=== PATIENT | male | born 1950 | race Caucasian/White ===

== ENCOUNTER → 2019-04-10 10:17 | Outpatient (BNVA) | payer MEDICARE, SELFPAY | PROVIDERS: Visit Provider Nurse Practitioner Family | DX: E78.5 Hyperlipidemia, unspecified (principal); I25.10 Atherosclerotic heart disease of native coronary artery without angina pectoris | CPT/HCPCS: 80053; 80061; 85025 ==

== ENCOUNTER → 2020-01-06 11:59 | Outpatient (BNVA) | payer MEDICARE, SELFPAY | PROVIDERS: Visit Provider Family Medicine | DX: K92.1 Melena (principal) | CPT/HCPCS: G0328 ==

== ENCOUNTER → 2020-02-13 08:54 | Outpatient (BNVA) | payer MEDICARE, SELFPAY | PROVIDERS: Visit Provider Surgery | DX: Z11.59 Encounter for screening for other viral diseases (principal); K92.1 Melena; R10.9 Unspecified abdominal pain | CPT/HCPCS: 87635 ==

== ENCOUNTER 2020-02-19 07:05 | Day surgery (SDC) | payer MEDICARE, SELFPAY ==
[2020-02-17 13:00] VITALS: BMI 26.1
[2020-02-19 07:18] VITALS: BP 139/84; PULSE 82; RESP 18; TEMP 36.5; O2SAT 99
[2020-02-19] MEDS: sodium chloride 0.9% 1,000 ML 30 ML IV (07:29)
--- NOTE | 2020-02-19 07:37 | ANES.PREANE2 ---
Pre-Anesthetic Assessment Pre-Anesthetic Assessment: Height/Weight: Height 1.85 m Weight 89.811 kg Temp Pulse Resp BP Pulse Ox 97.7 F 82 18 139/84 99 02/19/20 07:18 02/19/20 07:18 02/19/20 07:18 02/19/20 07:18 02/19/20 07:18 Preop Diagnosis: Hematochezia Proposed Procedure: Operation Date: 02/19/20 08:00 Proposed Procedures p EGD [id number] R10.9 K92.1(Not Applicable) - Gurinder Duggan MD s Colonoscopy(Not Applicable) - Gurinder Duggan MD Familial anesthetic complications: None Was Beta Lili taken within 24 hours: N/A Last intake: Intake Last Liquid Date 02/18/20 Last Liquid Time 23:00 Last Solid Date 02/16/20 Last Solid Time 23:59 Social: Social History: Tobacco Comment: former smoker, still dips snuff Exam: Pre-Anes Outpt Exam: alert, oriented x 3, clear to auscultation bilaterally and regular rate & rhythm Airway: Cervical ROM: WNL MP: 4 Dentition: Other (multiple missing teeth) CV/HEM: CV/HEM: CAD (stent in 2010 on plavix, holding since the ) and HTN (patient denies HTN) GI: Comments: hematochezia Metabolic: Metabolic: Hyperlipidemia Anesthetic Plan: ASA status: 3 Anesthesia: MAC Risk of > 500 ml blood loss (7ml/kg in children): No Meds/Allergies Current Medications: Current Medications Generic Name Dose Route Start Last Admin Trade Name Freq PRN Reason Stop Dose Admin Sodium Chloride 1,000 mls @ 30 ml s/hr 02/19/20 07:15 02/19/20 07:29 Sodium Chloride 0.9% IV 30 mls/hr .Q24H YOMI Administration PFSH Anesthesia PFSH: Medical History Arteriosclerotic coronary artery disease Hyperlipidemia Hypertension Surgical History Hx of angioplasty (~05/2010) Family History Father Cancer Mother Dementia Alzheimer's Social History Smoking and tobacco status: former smoker Quit status (tobacco): has quit using tobacco Year quit tobacco: 2010 Former quit date comment: smoked PPD x 20 Second hand smoke exposure: Yes Alcohol intake: current Alcohol intake frequency: 0-2 Drinks per Day Lives independently: Yes Marital status: Current occupational status: employed Current occupation: [employer] History of recent travel: No Current gender identity: Male Data Anesthesia Cardiac Studies: No Data to Display
--- NOTE | 2020-02-19 07:41 | W.PM.OPSFHP ---
Same Day Surgery H&P Indication for Procedure/HPI DATE OF PROCEDURE: February 19, 2020 CHIEF COMPLAINT/INDICATIONFOR SURGICAL PROCEDURE: Bleeding per rectum PREOP DIAGNOSIS: Hematochezia PLANNED PROCEDRUE: Operation Date: 02/19/20 08:00 Proposed Procedures p EGD [id number] R10.9 K92.1(Not Applicable) - Gurinder Duggan MD s Colonoscopy(Not Applicable) - Gurinder Duggan MD This is a pleasant 69 years old male patient referred to my office with history of black stool last week and patient denies history of peptic ulcer disease or consumption of NSAIDs yet did experience black stools and now it has subsided. There is no history of colon cancer he never had a colonoscopy before or EGD. Patient is referred to me for further work-up and potential intervention in the form of endoscopy. Patient denies any vomiting of blood or bleeding per orifice is otherwise. Interim history 02/19/2020 Patient comes today for diagnostic EGD and colonoscopy. ROS All systems have been reviewed negative except as per the above or per problem list. Medications/Allergies* Allergies/Adverse Reactions Allergy/AdvReac Type Severity Reaction Status Date / Time Penicillins Allergy Mild ALGY-Hives Verified 02/19/20 07:42 Current Medications: Generic Name Dose Route Start Last Admin Trade Name Freq PRN Reason Stop Dose Admin Sodium Chloride 1,000 mls @ 30 mls/hr 02/19/20 07:15 02/19/20 07:29 Sodium Chloride 0.9% IV 30 mls/hr .Q24H YOMI Administration Pertinent History/Comorbid Conditions* Medical History (Updated 01/06/20 @ 11:58 by Nicole Cervantes MD) Arteriosclerotic coronary artery disease Hyperlipidemia Hypertension Surgical History (Updated 01/06/20 @ 11:49 by Nicole Cervantes MD) Hx of angioplasty (~05/2010) Family History (Updated 04/10/19 @ 07:17 by Kelli Solorzano LPN, RT) Dementia Mother Alzheimer's Cancer Father Social History Smoking and tobacco status: former smoker Quit status (tobacco): has quit using tobacco Year quit tobacco: 2010 Former quit date comment: smoked PPD x 20 Second hand smoke exposure: Yes Alcohol intake: current Alcohol intake frequency: 0-2 Drinks per Day Lives independently: Yes Marital status: Current occupational status: employed Current occupation: [employer] History of recent travel: No Current gender identity: Male Pertinent Exam Findings alert, oriented x 3, clear to auscultation bilaterally, regular rate & rhythm and procedure specific exam findings (Abdominal examination nontender nondistended soft) Recommendations Surgery/Procedure today (EGD and colonoscopy with possible biopsy and possible polypectomy) Coding Level of Care Code Acute Control Supervisor for Carl Betancourt
[2020-02-19] MEDS: EPINEPHrine 1 mg/mL INJ (08:11)
[2020-02-19 08:16] VITALS: BP 119/77; PULSE 67; RESP 16; TEMP 36.2; O2SAT 95
[2020-02-19 08:34] VITALS: BP 114/69; PULSE 62; RESP 18; O2SAT 97
--- NOTE | 2020-02-19 08:37 | P.PCN_ITS ---
PACU note PACU note: VSS, Good respiratory effort, report to MALL MANAGER Post-Anesthesia Exam: awake
--- NOTE | 2020-02-19 08:37 | PM.PACU ---
PACU note PACU note: VSS, Good respiratory effort, report to SUPERVISOR MOLD SHOP Post-Anesthesia Exam: awake
== END 2020-02-19 08:57 | disposition home or self-care (01) ==
PROVIDERS: Visit Provider Surgery
PROC: 0DJ08ZZ Inspection of Upper Intestinal Tract, Via Natural or Artificial Opening Endoscopic (ICD-10-PCS; CPT 43235; principal; 2020-02-19 08:00)
PROC: 0DJD8ZZ Inspection of Lower Intestinal Tract, Via Natural or Artificial Opening Endoscopic (ICD-10-PCS; CPT 45378; 2020-02-19 08:00)
DX: K92.1 Melena (principal); I25.10 Atherosclerotic heart disease of native coronary artery without angina pectoris; E78.5 Hyperlipidemia, unspecified; I10 Essential (primary) hypertension; K31.7 Polyp of stomach and duodenum; K44.9 Diaphragmatic hernia without obstruction or gangrene; K21.00 Gastro-esophageal reflux disease with esophagitis, without bleeding; K25.3 Acute gastric ulcer without hemorrhage or perforation; K29.70 Gastritis, unspecified, without bleeding; F17.290 Nicotine dependence, other tobacco product, uncomplicated; Z95.5 Presence of coronary angioplasty implant and graft; Z79.02 Long term (current) use of antithrombotics/antiplatelets
CPT/HCPCS: 12345; 43239; 45378; 88305; J0171; J2704; J7030

== ENCOUNTER → 2020-05-06 10:15 | Outpatient (BNVA) | payer MEDICARE, SELFPAY | PROVIDERS: PCP Family Medicine; Visit Provider Family Medicine | DX: E78.5 Hyperlipidemia, unspecified (principal); K25.7 Chronic gastric ulcer without hemorrhage or perforation; Z68.25 Body mass index [BMI] 25.0-25.9, adult; F17.211 Nicotine dependence, cigarettes, in remission | CPT/HCPCS: 80053; 80061; 84443; 85025 ==

== ENCOUNTER 2021-04-05 11:23 | Outpatient (CLI) | payer MEDICARE, SELFPAY ==
--- NOTE | 2021-04-05 11:30 | XR_ITS ---
WS: [id number] XR sacroiliac jts m 3V [id number] REASON FOR EXAM: sciatica pain FINDINGS: No fracture or focal bone lesion. Mild narrowing with subchondral sclerosis and small inferior marginal osteophytes involving the sacro iliac joints. No effusion or bridging. No erosions. 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
--- NOTE | 2021-04-05 11:30 | XR_ITS ---
WS: [id number] XR lumbar spine 2-3V* [id number] REASON FOR EXAM: LBP sciatica, FINDINGS: Rotatory scoliosis convex left. Mild biconcave deformities of the lumbar vertebral bodies, chronic. No focal vertebral body lesion. Severe narrowing of the L1-L2 disc space with marginal sclerosis and osteophyte formation. There is narrowing of the L5-S1 disc space with a neutral anterior subluxation of L5 on S1 of 11 mm. There may be a spondylolysis at this level. XR/XR lumbar spine 2-3V* [id number] IMPRESSION: Degenerative spondylosis and spondylolisthesis as above. There may be a spondyl olysis at L5-S1. The abnormalities at L1-L2 and L5-S1 have progressed in comparison to previous examination of 10/13/2010.
== END 2021-04-05 11:24 | disposition home or self-care (01) ==
PROVIDERS: PCP Family Medicine; Visit Provider Nurse Practitioner Family
DX: M54.41 Lumbago with sciatica, right side (principal); M47.816 Spondylosis without myelopathy or radiculopathy, lumbar region; M43.16 Spondylolisthesis, lumbar region; M47.817 Spondylosis without myelopathy or radiculopathy, lumbosacral region
CPT/HCPCS: 72100; 72202

== ENCOUNTER → 2021-05-04 16:09 | Outpatient (BNVA) | payer MEDICARE, SELFPAY | PROVIDERS: PCP Family Medicine; Visit Provider Nurse Practitioner Family | DX: M54.31 Sciatica, right side (principal); K25.7 Chronic gastric ulcer without hemorrhage or perforation; E78.5 Hyperlipidemia, unspecified; I10 Essential (primary) hypertension; R10.9 Unspecified abdominal pain; D64.9 Anemia, unspecified; Z68.22 Body mass index [BMI] 22.0-22.9, adult | CPT/HCPCS: 80053; 80061; 82150; 82607; 82728; 83550; 83690; 84443; 85025 ==

== ENCOUNTER → 2021-05-06 07:25 | Day surgery (SDC) | payer MEDICARE, SELFPAY ==
[2021-05-06] VITALS (10 sets, daily range): BP systolic 101–137; BP diastolic 52–68; PULSE 56–78; RESP 18; TEMP 36.3–36.5; O2SAT 96–98
[2021-05-06] MEDS: sodium chloride 0.9% (100 ml) 100 ML 10 ML ×2 (09:13→10:54)
--- NOTE | 2021-05-06 13:15 | PC.NURSE ---
Pt to GI lab for two units PRBC's. Transfusion complete. No reaction noted. Pt scheduled for US of Abd tomorrow AM at 0630. Instructions and check in time for procedure given. Pt off unit via wheelchair to be taken home by daughter.
== END ==
LOC: OPS 07:29 → GILAB 07:33
PROVIDERS: PCP Family Medicine; Visit Provider Nurse Practitioner Family
DX: D64.9 Anemia, unspecified (principal)
CPT/HCPCS: 36430; 86850; 86900; 86920; P9016

== ENCOUNTER 2021-05-07 06:10 | Outpatient (CLI) | payer MEDICARE, SELFPAY ==
--- NOTE | 2021-05-07 06:30 | US_ITS ---
WS: [id number] Complete ABDOMINAL ULTRASOUND HISTORY: R10.9 - Unspecified abdominal pain COMPARISON: CT 12/16/2015 Liver: 13.9 cm in length. Liver is normal size with coarsened echotexture. There is a hypoechoic nodu le with mild peripheral vascularity in the anterior liver. This is probably the RIGHT lobe of the stephanie er. This hypoechoic nodule measures 1.7 x 1.5 x 1.9 cm. This area was not present on the prior CT fro m 2016. There is adjacent peristalsing loop of colon abutting against the liver. No bile duct dilatat ion. Portal Vein: Not imaged. Gallbladder: Mildly contracted. No stones identified. No wall thickening. Gallbladder wall thickness: 0.2 cm. Pancreas: Poorly visualized. CBD: 0.5 cm. Right kidney: 11.4 cm x 5.9 cm x 6.7 cm. Normal size kidney. Cortical cyst measures 1.5 x 2.3 x 2.6 cm. The exact location was not documented. Left kidney: 11.2 cm x 5.3 cm x 6.6 cm. Normal size kidney. Hypoechoic cyst appears to be from the m id kidney measuring 4.4 x 4.3 x 3.7 cm. Additional smaller cyst probably in the mid pelvis. Spleen: Normal size and echogenicity. Abdominal aorta and IVC are within normal limits. No ascites. US/US abdomen complete* [id number] IMPRESSION: 1. Mildly heterogeneous liver. Suspect early changes of hepatocellular disease . Indeterminate hypoechoic mass in the superior liver. Small amount of peripher al increased vascularity. This could be a complex cyst or early neoplasm. Recom mend follow-up abdomen and pelvis CT. 2. Bilateral renal cysts. 3. No common bile duct dilatation.
== END 2021-05-07 06:11 | disposition home or self-care (01) ==
LOC: RAD 06:11
PROVIDERS: PCP Family Medicine; Visit Provider Nurse Practitioner Family
DX: R10.9 Unspecified abdominal pain (principal); Q61.02 Congenital multiple renal cysts
CPT/HCPCS: 76700

== ENCOUNTER → 2021-05-18 14:13 | Outpatient (BNVA) | payer MEDICARE, SELFPAY | PROVIDERS: PCP Family Medicine; Visit Provider Nurse Practitioner Family | DX: C16.9 Malignant neoplasm of stomach, unspecified (principal); D64.9 Anemia, unspecified; K92.0 Hematemesis | CPT/HCPCS: 85025 ==

== ENCOUNTER 2021-05-20 16:39 | Inpatient (IN) | payer MEDICARE, OTHER, SELFPAY ==
[2021-05-20 16:48] VITALS: BP 98/64; PULSE 89; RESP 16; TEMP 36.8; O2SAT 92; BMI 22.4
[2021-05-20 16:51] VITALS: BP 116/71; PULSE 84; RESP 16; O2SAT 93
--- NOTE | 2021-05-20 17:36 | XRR_ITS ---
PROCEDURE INFORMATION: Exam: XR Chest Exam date and time: 05/20/2021 4:43 PM Age: 71 years old Clinical indication: Other: Weakness TECHNIQUE: Imaging protocol: XR of the chest. Views: 1 view. COMPARISON: CT Abdomen/Pelvis [facility] [id number] 12/16/2015 11:00 AM FINDINGS: Lungs: Visualized portions of the lungs are clear. There are emphysematous changes more on the left than on the right. Pleural spaces: Unremarkable. No pleural effusion. No pneumothorax. Heart/Mediastinum: Heart is within normal limits of size. Bones/joints: Unremarkable. XR/XR chest 1V portable [id number] IMPRESSION: No acute infiltrate.
--- NOTE | 2021-05-20 17:37 | W.ED.ABDPA2 ---
Documented by User: CHAZ Rodriguez 05/21/21 02:03 HPI - Abdominal Pain General: Chief Complaint: Nausea/Vomiting/Diarrhea Stated Complaint: eval Time Seen by Provider: 05/20/21 17:22 Source: patient and family Mode of arrival: ambulatory Limitations: no limitations History of Present Illness: Patient is a nice 71-year-old male who apparently was sent here from Dr. Taylor for possible admission and feeding tube placement. Patient patient was diagnosed with gastric cancer 2 years ago but unfortunately lost to follow-up and never received any form of treatment. Over the past several weeks he has recently got back into medical care. He has seen general surgery Dr. Duggan as well as oncologist Dr. Taylor. Over the past few days he states he is having an incredibly difficult time keeping food and liquids down. states he has not ate in 3 days. Patient reportedly feels very weak. PMH is significant for CAD, HTN, hyperlipidemia. MD elicited complaint: abdominal pain Onset (ago): day(s) Pain Consistency: constant Location: Epigastric Severity: severe Exacerbating factors: eating Relieving factors: nothing Associated Symptoms: Reports nausea and vomiting; Denies change in bowel habits, chills, dysuria, fever(s), hematochezia, hematuria and melena Review of Systems Const: Reports: fatigue; Denies: fever(s), chills, body aches or malaise ENMT: Denies: throat pain or odynophagia Card: Denies: chest pain Resp: Denies: dyspnea GI: Reports: abdominal pain, nausea and vomiting; Denies: change in bowel habits, hematochezia or melena : Denies: flank pain, dysuria or hematuria Musc: Denies: neck pain, back pain, extremity pain or joint pain Skin/Breast: Denies: rash Neuro: Denies: headache(s), numbness in extremities, weakness in extremities, sensory changes or dizziness PFSH ED PFSH: Medical History Arteriosclerotic coronary artery disease Blood in stool Gastric cancer Hyperlipidemia Hypertension Surgical History History of colonoscopy with polypectomy within 5 yrs Hx of angioplasty (~05/2010) Family History Father Cancer Mother Dementia Alzheimer's Social History Smoking and tobacco status: former smoker Quit status (tobacco): has quit using tobacco Year quit tobacco: 2010 Former quit date comment: smoked PPD x 20 Second hand smoke exposure: Yes Alcohol intake: current Alcohol intake frequency: 0-2 Drinks per Day Lives independently: Yes Marital status: Current occupational status: employed Current occupation: [employer] History of recent travel: No Current gender identity: Male Physical Exam Const: COMMON NORMALS: no acute distress, patient oriented x3, no limitations and alert GENERAL APPEARANCE: cooperative ORIENTATION/CONSCIOUSNESS: Yes awake, Yes oriented to person, Yes oriented to place and Yes oriented to time OTHER: pt appears clinically weak and looks like he doesn't feel well HENMT: COMMON NORMALS: normocephalic and atraumatic HEAD & SCALP: normocephalic and atraumatic Chest: COMMONS NORMALS: normal inspection of the chest and normal palpation of entire chest wall Resp: COMMON NORMALS: normal respiratory effort and clear to auscultation bilaterally AUSCULTATION: clear to auscultation bilaterally Cardio: COMMON NORMALS: regular rate and regular rhythm RATE: regular rate RHYTHM: regular rhythm GI: COMMON NORMALS: Normal to inspection, nondistended, normoactive bowel sounds present, Soft to palpation, No hepatosplenomegaly present and no masses INSPECTION: Yes normal to inspection PALPATION: Yes Soft to palpation, Yes Tenderness to palpation present (GI) (upper abdomen) and Yes No hepatosplenomegaly present : COMMON NORMALS: Yes no CVA tenderness BLADDER/KIDNEY EXAM: Yes no CVA tenderness Back/Pelvis: COMMON NORMALS: no CVA tenderness Extremity: COMMON NORMALS: normal to inspection and full ROM GENERAL: Yes normal exam except as noted Neuro: ARCHIE COMA SCALE: document GCS findings Jackson coma scale eye opening: Spontaneous Archie coma scale verbal response: Orientated Jackson coma scale motor response: Obey commands Jackson coma scale total score: 15 COMMON NORMALS: patient oriented x3, moves all extremities, no focal motor deficits and no sensory deficits noted SENSORIUM/ORIENTATION: Yes alert, Yes oriented to person, Yes oriented to place and Yes oriented to time Skin: COMMON NORMALS: no rashes or lesions noted GENERAL SKIN EXAM: no rashes or lesions noted Course Consultations: Consultation #1: Dr. Taylor-recommends labs, IV fluid hydration, admit to hospitalist with Dr. Duggan to consult with possible plan for EGD, gastric biopsy, and possible G or J-tube placement Consultation #2: Dr. Duggan-recommends obtaining CT abdomen and pelvis and will consult again on patient following these results; he felt like based on CT findings patient may need higher level of care if extent of disease is passed what can be treated here Dr. Duggan reviewed patient CT imaging and spoke to patient at bedside as well as spoke to his daughter. He feels like patient would most likely benefit from higher level of care given the extensiveness of his malignancy. Recommended transfer to a tertiary center that could sit down with patient and give him options regarding palliative surgical options to bypass/treat obstruction. Consultation #3: Spoke to transfer line at [facility] who spoke to oncology GI/general surgery who stated there is nothing they could/would do from a surgical standpoint as cancer is too extensive. They did not have any bed availability anyway. Spoke to [facility] who does accept patient and will place him on the wait list but stated wait list can be up to 3-4 days Spoke to [facility] who accepts patient and states they will place on waiting list but could not tell me how long this could take. I spoke to hospitalist Dr. Nolasco and surgical provider Dr. Rodriguez. Spoke to [facility] who accepts patient and was placed on their waiting list. Vital Signs: Vital signs: Vital Signs Temperature 98.3 F 05/21/21 07:26 Pulse Rate 90 05/21/21 07:26 Respiratory Rate 16 05/21/21 07:26 Blood Pressure 102/68 05/21/21 07:26 Pulse Oximetry 92 05/21/21 07:26 MDM - Abdominal Pain Medical Decision Making Patient is a 71-year-old male with a history of gastric cancer that unfortunately has been left untreated over the past 2 years. Today he comes in with complaints of nausea, vomiting, inability to eat/drink, and significant upper abdominal pains. He was sent by his oncologist Dr. Taylor with plans for possible admission and Dr. Duggan to consult for feeding tube placement. CT imaging today shows a markedly distended stomach with gastric outlet obstruction. Dr. Duggan has evaluated patient's imaging and has spoken to patient bedside as well as to his family. He feels patient would most likely benefit from tertiary level of care to go over more extensive palliative surgical options (subtotal/total gastrectomy, endoluminal stenting, etc). He did recommend NG tube placement (this was placed here-confirmation XR showing suboptimal positioning so this was advanced). I spoke to patient's son who stated his first choice would be [facility] as he lives close to [place] however unfortunately [facility] did not have a bed and was unwilling to take patient as they did not feel he would be an appropriate surgical candidate. I have spoken to multiple tertiary facilities all of which unfortunately have wait lists-they were willing to place patient on these lists but can give no definitive timeframe. I spoke to Dr. Pathak who recommended possible admission here until a bed becomes available at one of these hospitals to keep patient from having to be boarded in the ED for days. I spoke to Dr. Purdy who was agreeable to this plan. Lab Data : 05/20/21 17:55 05/20/21 18:58 Labs/Radiology: Radiology Impressions Abdomen/Pelvis CT 05/20/21 18:01 IMPRESSION: 1. Markedly distended stomach with suspicion of gastric outlet obstruction. 2. Liver metastasis. 3. Thickening and possible lesion distal gastric wall. 4. Indeterminate right adrenal mass, follow-up suggested. 5. Mild gastrohepatic adenopathy COMMENTS: 1. THIS REPORT CONTAINS FINDINGS THAT MAY BE CRITICAL TO PATIENT CARE. The findings were verbally communicated via telephone conference with Dorothy Dacosta at 7:03 PM CDT on 05/20/2021. The findings were acknowledged and understood. 2. Consistent with the [employer]'s Incidental Findings Committee white paper (J Am Arsen Radiol 2018): Any incidental renal lesion less than 1 cm or classified as too small to characterize, or any incidental cystic renal lesion characterized as simple-appearing, is likely benign. No follow-up imaging is recommended for these lesions per consensus recommendations based on imaging criteria. Chest X-Ray 05/20/21 19:52 IMPRESSION: Nasogastric tube tip is in the distal esophagus. Laboratory Results WBC 15.0 10^3/uL (4.0-10.0) H 05/20/21 17:55 RBC 4.62 10^6/uL (4.1-5.3) 05/20/21 17:55 Hgb 11.4 g/dL (11.7-16.6) L 05/20/21 17:55 Hct 37.9 % (42.0-52.0) L 05/20/21 17:55 MCV 82.0 fl (80-94) 05/20/21 17:55 MCH 24.7 pg (28.0-34.0) L 05/20/21 17:55 MCHC 30.1 g/dL (30.0-36.0) 05/20/21 17:55 RDW 15.6 % (12.1-15.1) H 05/20/21 17:55 Plt Count 468 10^3/cmm (130-400) H 05/20/21 17:55 MPV 9.2 fL (7.4-10.4) 05/20/21 17:55 Neut % (Auto) 84.8 % 05/20/21 17:55 Lymph % (Auto) 6.3 % 05/20/21 17:55 Andrew % (Auto) 7.4 % 05/20/21 17:55 Eos % (Auto) 0.3 % 05/20/21 17:55 Baso % (Auto) 0.7 % 05/20/21 17:55 Neut # (Auto) 12.70 10^3/uL (1.8-7.7) H 05/20/21 17:55 Lymph # (Auto) 0.9 10^3/uL (0.8-4.8) 05/20/21 17:55 Andrew # (Auto) 1.1 10^3/uL (0.2-0.9) H 05/20/21 17:55 Eos # (Auto) 0.0 10^3/uL (0.0-0.8) 05/20/21 17:55 Baso # (Auto) 0.1 10^3/uL (0.0-0.1) 05/20/21 17:55 Nucleated RBC % (auto) 0 % 05/20/21 17:55 Nucleated RBCs # 0.0 /100WBC 05/20/21 17:55 Sodium 136 mmol/L (136-145) 05/20/21 18:58 Potassium 4.5 mmol/L (3.5-5.1) 05/20/21 18:58 Chloride 100 mmol/L (98-107) 05/20/21 18:58 Carbon Dioxide 14 mmol/L (22-29) L 05/20/21 18:58 Anion Gap 26.5 (5-19) H 05/20/21 18:58 BUN 21 mg/dL (8-23) 05/20/21 18:58 Creatinine 0.7 mg/dL (0.7-1.2) 05/20/21 18:58 GFR Calculation Not Reportable 05/20/21 18:58 Glucose 103 mg/dL (65-115) 05/20/21 18:58 Calculated Osmolality 285 mOsm/kg (285-295) 05/20/21 18:58 Lactic Acid 2.9 mmol/L (0.5-2.2) H 05/20/21 18:58 Lactic Acid (Sepsis) 2.2 mmol/L (0.5-2.2) 05/20/21 21:33 Calcium 8.5 mg/dL (8.5-10.5) 05/20/21 18:58 Total Bilirubin 0.4 mg/dL (0.15-1.2) 05/20/21 18:58 AST 45 U/L (0-40) H 05/20/21 18:58 ALT 19 U/L (0-41) 05/20/21 18:58 Alkaline Phosphatase 80 IU/L (40-130) 05/20/21 18:58 Total Protein 6.7 g/dL (6.6-8.7) 05/20/21 18:58 Albumin 3.5 g/dL (3.5-5.2) 05/20/21 18:58 Globulin 3.2 g/dL (1.3-4.6) 05/20/21 18:58 Lipase 47 U/L (13-60) 05/20/21 18:58 Urine Color Yellow (Yellow) 05/21/21 01:15 Urine Appearance Clear (CLEAR) 05/21/21 01:15 Urine pH 5 (5-7) 05/21/21 01:15 Ur Specific [place] 1.010 (1.005-1.030) 05/21/21 01:15 Urine Protein Trace (Negative) 05/21/21 01:15 Urine Glucose (UA) Norm (Normal) 05/21/21 01:15 Urine Ketones 2+ (Negative) H 05/21/21 01:15 Urine Blood Trace (Negative) H 05/21/21 01:15 Urine Nitrate Negative (Negative) 05/21/21 01:15 Urine Bilirubin 1+ (Negative) H 05/21/21 01:15 Urine Urobilinogen 1 mg/dL (Negative) H 05/21/21 01:15 Ur Leukocyte Esterase Negative (Negative) 05/21/21 01:15 Urine RBC 0-4 /hpf (0-2) H 05/21/21 01:15 Urine WBC 0-4 /hpf (0-5) H 05/21/21 01:15 Ur Squamous Epith Cells 0-4 /hpf (0-5) H 05/21/21 01:15 Amorphous Sediment 2+ /hpf 05/21/21 01:15 Urine Bacteria Trace /hpf (NONE) 05/21/21 01:15 Urine Sperm 1+ /hpf 05/21/21 01:15 SARS-CoV-2 Ag (Rapid) Negative (Negative) 05/20/21 22:42 Discharge Plan Discharge Patient Disposition: Admitted As Inpatient Admit Provider: Blair Purdy Clinical Impression: Dehydration, Gastric outlet obstruction, Leukocytosis Condition: Stable Coding Level of Care Code ED Beef Ribber for Chg Fwd Exam Comprehensive Documented by User: Douglas Pathak MD 05/21/21 09:43 HPI - Abdominal Pain General: Chief Complaint: Nausea/Vomiting/Diarrhea Stated Complaint: eval Time Seen by Provider: 05/20/21 17:22 PFS ED PFSH: Medical History Arteriosclerotic coronary artery disease Blood in stool Gastric cancer Hyperlipidemia Hypertension Surgical History History of colonoscopy with polypectomy within 5 yrs Hx of angioplasty (~05/2010) Family History Father Cancer Mother Dementia Alzheimer's Social History Smoking and tobacco status: former smoker Quit status (tobacco): has quit using tobacco Year quit tobacco: 2010 Former quit date comment: smoked PPD x 20 Second hand smoke exposure: Yes Alcohol intake: current Alcohol intake frequency: 0-2 Drinks per Day Lives independently: Yes Marital status: Current occupational status: employed Current occupation: [employer] History of recent travel: No Current gender identity: Male Physical Exam Neuro: ARCHIE COMA SCALE: document GCS findings Jackson coma scale total score: 15 Course Vital Signs: Vital signs: Vital Signs Temperature 98.3 F 05/21/21 07:26 Pulse Rate 90 05/21/21 07:26 Respiratory Rate 16 05/21/21 07:26 Blood Pressure 102/68 05/21/21 07:26 Pulse Oximetry 92 05/21/21 07:26 MDM - Abdominal Pain Medical Decision Making Patient is a 71-year-old male with a history of gastric cancer that unfortunately has been left untreated over the past 2 years. Today he comes in with complaints of nausea, vomiting, inability to eat/drink, and significant upper abdominal pains. He was sent by his oncologist Dr. Taylor with plans for possible admission and Dr. Duggan to consult for feeding tube placement. CT imaging today shows a markedly distended stomach with gastric outlet obstruction. Dr. Duggan has evaluated patient's imaging and has spoken to patient bedside as well as to his family. He feels patient would most likely benefit from tertiary level of care to go over more extensive palliative surgical options (subtotal/total gastrectomy, endoluminal stenting, etc). He did recommend NG tube placement (this was placed here-confirmation XR showing suboptimal positioning so this was advanced). I spoke to patient's son who stated his first choice would be [facility] as he lives close to [place] however unfortunately [facility] did not have a bed and was unwilling to take patient as they did not feel he would be an appropriate surgical candidate. I have spoken to multiple tertiary facilities all of which unfortunately have wait lists-they were willing to place patient on these lists but can give no definitive timeframe. I spoke to Dr. Pathak who recommended possible admission here until a bed becomes available at one of these hospitals to keep patient from having to be boarded in the ED for days. I spoke to Dr. Purdy who was agreeable to this plan. I discussed this case with CHAZ Rodriguez. I have reviewed documentation and agree except as noted. I have reviewed laboratory studies, imaging. I personally evaluated patient and will perform cordero portions of E/M. Patient requires transfer to tertiary care center with capability to manage patient's cancer with acute gastric outlet obstruction. Patient exceeds her capabilities after discussion with general surgery. Multiple outside facilities for contacted and potentially can accept the patient however we will be on the waiting list for a number of days. Based on laboratory studies I do not believe that the patient would be appropriate for outpatient follow-up regarding his condition. Patient to be admitted for medical management and continued symptom treatment pending bed availability at outside facility with appropriate capabilities. Douglas Pathak MD Emergency Medicine Lab Data : 05/20/21 17:55 05/20/21 18:58 Labs/Radiology: Radiology Impressions Abdomen/Pelvis CT 05/20/21 18:01 IMPRESSION: 1. Markedly distended stomach with suspicion of gastric outlet obstruction. 2. Liver metastasis. 3. Thickening and possible lesion distal gastric wall. 4. Indeterminate right adrenal mass, follow-up suggested. 5. Mild gastrohepatic adenopathy COMMENTS: 1. THIS REPORT CONTAINS FINDINGS THAT MAY BE CRITICAL TO PATIENT CARE. The findings were verbally communicated via telephone conference with Dorothy Dacosta at 7:03 PM CDT on 05/20/2021. The findings were acknowledged and understood. 2. Consistent with the [employer]'s Incidental Findings Committee white paper (J Am Arsen Radiol 2018): Any incidental renal lesion less than 1 cm or classified as too small to characterize, or any incidental cystic renal lesion characterized as simple-appearing, is likely benign. No follow-up imaging is recommended for these lesions per consensus recommendations based on imaging criteria. Chest X-Ray 05/20/21 19:52 IMPRESSION: Nasogastric tube tip is in the distal esophagus. Laboratory Results WBC 15.0 10^3/uL (4.0-10.0) H 05/20/21 17:55 RBC 4.62 10^6/uL (4.1-5.3) 05/20/21 17:55 Hgb 11.4 g/dL (11.7-16.6) L 05/20/21 17:55 Hct 37.9 % (42.0-52.0) L 05/20/21 17:55 MCV 82.0 fl (80-94) 05/20/21 17:55 MCH 24.7 pg (28.0-34.0) L 05/20/21 17:55 MCHC 30.1 g/dL (30.0-36.0) 05/20/21 17:55 RDW 15.6 % (12.1-15.1) H 05/20/21 17:55 Plt Count 468 10^3/cmm (130-400) H 05/20/21 17:55 MPV 9.2 fL (7.4-10.4) 05/20/21 17:55 Neut % (Auto) 84.8 % 05/20/21 17:55 Lymph % (Auto) 6.3 % 05/20/21 17:55 Andrew % (Auto) 7.4 % 05/20/21 17:55 Eos % (Auto) 0.3 % 05/20/21 17:55 Baso % (Auto) 0.7 % 05/20/21 17:55 Neut # (Auto) 12.70 10^3/uL (1.8-7.7) H 05/20/21 17:55 Lymph # (Auto) 0.9 10^3/uL (0.8-4.8) 05/20/21 17:55 Andrew # (Auto) 1.1 10^3/uL (0.2-0.9) H 05/20/21 17:55 Eos # (Auto) 0.0 10^3/uL (0.0-0.8) 05/20/21 17:55 Baso # (Auto) 0.1 10^3/uL (0.0-0.1) 05/20/21 17:55 Nucleated RBC % (auto) 0 % 05/20/21 17: Nucleated RBCs # 0.0 /100WBC 05/20/21 17:55 Sodium 136 mmol/L (136-145) 05/20/21 18:58 Potassium 4.5 mmol/L (3.5-5.1) 05/20/21 18:58 Chloride 100 mmol/L (98-107) 05/20/21 18:58 Carbon Dioxide 14 mmol/L (22-29) L 05/20/21 18:58 Anion Gap 26.5 (5-19) H 05/20/21 18:58 BUN 21 mg/dL (8-23) 05/20/21 18:58 Creatinine 0.7 mg/dL (0.7-1.2) 05/20/21 18:58 GFR Calculation Not Reportable 05/20/21 18:58 Glucose 103 mg/dL (65-115) 05/20/21 18:58 Calculated Osmolality 285 mOsm/kg (285-295) 05/20/21 18:58 Lactic Acid 2.9 mmol/L (0.5-2.2) H 05/20/21 18:58 Lactic Acid (Sepsis) 2.2 mmol/L (0.5-2.2) 05/20/21 21:33 Calcium 8.5 mg/dL (8.5-10.5) 05/20/21 18:58 Total Bilirubin 0.4 mg/dL (0.15-1.2) 05/20/21 18:58 AST 45 U/L (0-40) H 05/20/21 18:58 ALT 19 U/L (0-41) 05/20/21 18:58 Alkaline Phosphatase 80 IU/L (40-130) 05/20/21 18:58 Total Protein 6.7 g/dL (6.6-8.7) 05/20/21 18:58 Albumin 3.5 g/dL (3.5-5.2) 05/20/21 18:58 Globulin 3.2 g/dL (1.3-4.6) 05/20/21 18:58 Lipase 47 U/L (13-60) 05/20/21 18:58 Urine Color Yellow (Yellow) 05/21/21 01:15 Urine Appearance Clear (CLEAR) 05/21/21 01:15 Urine pH 5 (5-7) 05/21/21 01:15 Ur Specific [place] 1.010 (1.005-1.030) 05/21/21 01:15 Urine Protein Trace (Negative) 05/21/21 01:15 Urine Glucose (UA) Norm (Normal) 05/21/21 01:15 Urine Ketones 2+ (Negative) H 05/21/21 01:15 Urine Blood Trace (Negative) H 05/21/21 01:15 Urine Nitrate Negative (Negative) 05/21/21 01:15 Urine Bilirubin 1+ (Negative) H 05/21/21 01:15 Urine Urobilinogen 1 mg/dL (Negative) H 05/21/21 01:15 Ur Leukocyte Esterase Negative (Negative) 05/21/21 01:15 Urine RBC 0-4 /hpf (0-2) H 05/21/21 01:15 Urine WBC 0-4 /hpf (0-5) H 05/21/21 01:15 Ur Squamous Epith Cells 0-4 /hpf (0-5) H 05/21/21 01:15 Amorphous Sediment 2+ /hpf 05/21/21 01:15 Urine Bacteria Trace /hpf (NONE) 05/21/21 01:15 Urine Sperm 1+ /hpf 05/21/21 01:15 SARS-CoV-2 Ag (Rapid) Negative (Negative) 05/20/21 22:42 Discharge Plan Discharge Patient Disposition: Admitted As Inpatient Admit Provider: Blair Purdy Clinical Impression: Dehydration, Gastric outlet obstruction, Leukocytosis Condition: Stable Coding Level of Care Code ED Beef Ribber for Chg Fwd Exam Comprehensive
--- NOTE | 2021-05-20 18:01 | CTR_ITS ---
PROCEDURE INFORMATION: Exam: CT Abdomen And Pelvis With Contrast Exam date and time: 05/20/2021 6:24 PM Age: 71 years old Clinical indication: Abdominal pain; Prior surgery; Additional info: Abdominal pain; HX gastric CA; N/v TECHNIQUE: Imaging protocol: Computed tomography of the abdomen and pelvis with contrast. Radiation optimization: All CT scans at this facility use at least one of these dose optimization techniques: automated exposure control; mA and/or kV adjustment per patient size (includes targeted exams where dose is matched to clinical indication); or iterative reconstruction. Contrast material: OMNI 300; Contrast volume: 95 ml; Contrast route: INTRAVENOUS (IV); COMPARISON: CT Abdomen/Pelvis wwo [id number] 12/16/2015 11:00 AM RADIATION DOSE METRICS: Total DLP (mGy-cm): 1419.79 FINDINGS: Lungs: There is centrilobular emphysema at lung bases and mild fibrotic changes stable compared with 12/16/2015. Liver: There is a diffuse decrease in hepatic parenchymal density, consistent with mild fatty infiltration. There are 3 ring-enhancing lesions in the right lobe of the liver worrisome for metastasis measuring 20, 22, and 8 mm in diameter new compared with 12/16/2015. There is possible 4th tiny hypodensity high right lobe of the liver which may represent additional metastasis. There is a 1 cm size possible lesion in the tip of the left lobe of the liver also worrisome for metastasis. Gallbladder and bile ducts: The gallbladder is normal. Pancreas: The pancreas is normal. Spleen: The spleen is normal. Adrenal glands: The adrenal glands are normal. There is 11 mm hypoenhancing nodule right adrenal gland which appears to be new compared with 12/16/2015. Please see the recent PET CT scan. Kidneys and ureters: There are multiple right renal collecting system calcifications. There is a 2.3 cm benign-appearing cyst lower pole right kidney and multiple benign cysts left kidney, largest measuring 5 cm. There is no evidence of hydronephrosis. There is no stone along the course of either ureter. Stomach and bowel: There is severe gastric distention by fluid and food which may represent gastric outlet obstruction. There is no evidence of colitis/diverticulitis. There is thickening of the posterior wall of the stomach in the distal antrum which is nonspecific. There is also mild thickening of the pre-pyloric stomach with slightly lobulated appearance. These finding are consistent with the given clinical history of gastric carcinoma. Further evaluation suggested. Appendix: A normal appendix is identified. Intraperitoneal space: There is no evidence of free intraperitoneal fluid. Vasculature: The aorta demonstrates moderate atherosclerotic calcification. Lymph nodes: There is a single mildly prominent left periaortic lymph node measuring 8 x 15 mm which is new compared with 2016. There are some mildly prominent gastrohepatic lymph nodes measuring up to 8 x 13 mm which are new compared with 2016. Urinary bladder: Unremarkable as visualized. Reproductive: The prostate demonstrates moderate nonspecific enlargement. The seminal vesicles are normal. The prostate gland demonstrates nonspecific parenchymal calcifications. Bones/joints: The lumbar spine demonstrates moderate degenerative changes at multiple levels. There is bilateral L5 spondylolysis, severe narrowing of the L5-S1 disc space and 5 mm of spondylolisthesis not significantly changed. No fracture or bone metastasis is identified. Soft tissues: Unremarkable. CT/CT abdomen pelvis w con* [id number] IMPRESSION: 1. Markedly distended stomach with suspicion of gastric outlet obstruction. 2. Liver metastasis. 3. Thickening and possible lesion distal gastric wall. 4. Indeterminate right adrenal mass, follow-up suggested. 5. Mild gastrohepatic adenopathy COMMENTS: 1. THIS REPORT CONTAINS FINDINGS THAT MAY BE CRITICAL TO PATIENT CARE. The findings were verbally communicated via telephone conference with Dorothy Dacosta at 7:03 PM CDT on 05/20/2021. The findings were acknowledged and understood. 2. Consistent with the [place] [employer]'s Incidental Findings Committee white paper (J Am Arsen Radiol 2018): Any incidental renal lesion less than 1 cm or classified as too small to characterize, or any incidental cystic renal lesion characterized as simple-appearing, is likely benign. No follow-up imaging is recommended for these lesions per consensus recommendations based on imaging criteria.
[2021-05-20 18:18] LABS: Basophils # 0.1 10^3/uL (0.0-0.1); Basophils % 0.7 %; Eosinophils % 0.3 %; Hematocrit 37.9 % (42.0-52.0); Hemoglobin 11.4 g/dL (11.7-16.6); Lymphocytes # 0.9 10^3/uL (0.8-4.8); Lymphocytes % 6.3 %; Mean Corpuscular HGB Conc 30.1 g/dL (30.0-36.0); Mean Corpuscular Hemoglobin 24.7 pg (28.0-34.0); Mean Platelet Volume 9.2 fL (7.4-10.4); Monocytes # 1.1 10^3/uL (0.2-0.9); Monocytes % 7.4 %; Neutrophils % 84.8 %; Nucleated Red Blood Cells % 0 %; Platelet Count 468 10^3/cmm (130-400); Red Blood Count 4.62 10^6/uL (4.1-5.3); Red Cell Distribution Width 15.6 % (12.1-15.1)
[2021-05-20] MEDS: iohexol 300 mg/mL 100 mL Btl IV (18:22)
[2021-05-20] MEDS: ondansetron 2 mg/ML SDV 2 mL 4 MG IVP (18:33)
[2021-05-20 18:34] VITALS: RESP 16; O2SAT 91
[2021-05-20] MEDS: morphine 4 mg/mL SDV 1 mL IVP (18:34)
[2021-05-20] MEDS: sodium chloride 0.9% 1,000 ML 999 ML IV ×2 (18:37→20:16)
[2021-05-20 18:50] VITALS: O2SAT 95
[2021-05-20 18:51] VITALS: BP 142/98; PULSE 91; O2SAT 95
[2021-05-20 19:00] VITALS: BP 126/93; PULSE 87; RESP 17; O2SAT 94
--- NOTE | 2021-05-20 19:14 | PM.PN ---
Subjective Subjective: Patient was seen and evaluated in the emergency department as he has been having nausea and vomiting. Seen by Dr. Taylor from today and was recommended to go to the ER for further evaluation and potential hydration. I was contacted by the ER physician rn first assistant MsAllison Dorothy Dacosta and discussed the case with her and recommended to obtain a CT scan of the abdomen and pelvis with IV contrast to have a better understanding of the underlying surgical anatomy. FINDINGS: Lungs: There is centrilobular emphysema at lung bases and mild fibrotic changes stable compared with 12/16/2015. Liver: There is a diffuse decrease in hepatic parenchymal density, consistent with mild fatty infiltration. There are 3 ring-enhancing lesions in the right lobe of the liver worrisome for metastasis measuring 20, 22, and 8 mm in diameter new compared with 12/16/2015. There is possible 4th tiny hypodensity high right lobe of the liver which may represent additional metastasis. There is a 1 cm size possible lesion in the tip of the left lobe of the liver also worrisome for metastasis. Gallbladder and bile ducts: The gallbladder is normal. Pancreas: The pancreas is normal. Spleen: The spleen is normal. Adrenal glands: The adrenal glands are normal. There is 11 mm hypoenhancing nodule right adrenal gland which appears to be new compared with 12/16/2015. Please see the recent PET CT scan. Kidneys and ureters: There are multiple right renal collecting system calcifications. There is a 2.3 cm benign-appearing cyst lower pole right kidney and multiple benign cysts left kidney, largest measuring 5 cm. There is no evidence of hydronephrosis. There is no stone along the course of either ureter. Stomach and bowel: There is severe gastric distention by fluid and food which may represent gastric outlet obstruction. There is no evidence of colitis/diverticulitis. There is thickening of the posterior wall of the stomach in the distal antrum which is nonspecific. There is also mild thickening of the pre-pyloric stomach with slightly lobulated appearance. These finding are consistent with the given clinical history of gastric carcinoma. Further evaluation suggested. Appendix: A normal appendix is identified. Intraperitoneal space: There is no evidence of free intraperitoneal fluid. Vasculature: The aorta demonstrates moderate atherosclerotic calcification. Lymph nodes: There is a single mildly prominent left periaortic lymph node measuring 8 x 15 mm which is new compared with 2016. There are some mildly prominent gastrohepatic lymph nodes measuring up to 8 x 13 mm which are new compared with 2016. Urinary bladder: Unremarkable as visualized. Reproductive: The prostate demonstrates moderate nonspecific enlargement. The seminal vesicles are normal. The prostate gland demonstrates nonspecific parenchymal calcifications. Bones/joints: The lumbar spine demonstrates moderate degenerative changes at multiple levels. There is bilateral L5 spondylolysis, severe narrowing of the L5-S1 disc space and 5 mm of spondylolisthesis not significantly changed. No fracture or bone metastasis is identified. Soft tissues: Unremarkable. Patient was seen and evaluated in the emergency department after the CT scan was obtained and per my personal interpretation certainly the patient does have gastric outlet obstruction but require NG tube for decompression. Medications: Reviewed: Yes Vitals/I&O/Wt Last Vital Signs Temp 98.2 F 05/20/21 16:48 Pulse 91 05/20/21 18:51 Resp 16 05/20/21 18:34 BP 142/98 05/20/21 18:51 Pulse Ox 95 05/20/21 18:51 Weight last 48 hrs Weight 170 lb Physical Exam Narrative: Patient is conscious alert oriented X3 No apparent distress Coffee-ground emesis At the bedside bin/vital signs are stable BMI 22.4 Head and neck examination PERRLA no masses no cervical lymphadenopathy no jaundice Abdomen nontender Moderately distended in the upper abdomen otherwise,soft no organomegaly guarding or rigidity/no signs of peritonitis Data : 05/20/21 17:55 05/20/21 18:58 A&P Assessment and plan (1) Gastric outlet obstruction: After thorough history physical examination and reviewing the chart and images with my personal dictation and knowing the report of the PET CT scan that showed metastatic disease to the liver and mediastinal compartment as well as intra-abdominal and retroperitoneal involvement. NG placement for decompression but low intermittent wall suction IV fluid resuscitation Repeated physical examination I do believe at this point that the patient does have gastric cancer with gastric outlet obstruction likely he would benefit from a higher level of care for potential intervention and more resources will be available at a tertiary center. Am Not sure about the surgical candidacy at this point giving the advanced metastatic disease yet a potential palliative approach can be achieved and a feeding access can be provided at this point. Discussed in length and in depth with the patient as well as with his daughter about the potential plan of care and both agreed about the transfer to a higher level of care and also I did discuss the case with Ms. Dacosta physician rn first assistant involved in patient's care in the ER. PPI therapy Assurance and education All questions have been answered and all concerns have been addressed to patient's satisfaction. Status: Acute Attestations Medical Necessity Statement*: ER visit Requiring IV fluid resuscitation Coding Level of Care Code Acute Supervisor Waterproofing for Chg Fwd Diagnoses Gastric outlet obstruction K31.1
--- NOTE | 2021-05-20 19:19 | PC.NURSE ---
1900-Report to ALEKS Miller. Patient daughter returned to bedside and had lengthy conversation on phone with Surgeon. Disposition pending. VS stable
[2021-05-20 19:23] LABS: Lactic Sepsis W/Reflex 2.9 mmol/L (0.5-2.2)
[2021-05-20 19:44] LABS: Albumin Level 3.5 g/dL (3.5-5.2); Alkaline Phosphatase 80 IU/L (40-130); Blood Urea Nitrogen 21 mg/dL (8-23); Calcium 8.5 mg/dL (8.5-10.5); Carbon Dioxide 14 mmol/L (22-29); Chloride 100 mmol/L (98-107); Creatinine Clr Calc Pharmacy 91.6416; Globulin 3.2 g/dL (1.3-4.6); Glucose 103 mg/dL (65-115); Lipase 47 U/L (13-60); Osmolality Calculated 285 mOsm/kg (285-295); Sodium 136 mmol/L (136-145); Total Bilirubin 0.4 mg/dL (0.15-1.2); Total Protein 6.7 g/dL (6.6-8.7)
[2021-05-20 19:46] LABS: Alanine Aminotransferase 19 U/L (0-41); Anion Gap 26.5 (5-19); Aspartate Amino Transferase 45 U/L (0-40); Potassium 4.5 mmol/L (3.5-5.1)
--- NOTE | 2021-05-20 19:52 | XRR_ITS ---
PROCEDURE INFORMATION: Exam: XR Chest Exam date and time: 05/20/2021 6:59 PM Age: 71 years old Clinical indication: Device placement; Ng tube; Additional info: Line placement, ng tube TECHNIQUE: Imaging protocol: XR of the chest. Views: 1 view. COMPARISON: CR (CHEST, ) 05/20/2021 4:43 PM FINDINGS: There is a nasogastric tube in place with its tip in the distal esophagus 3 or 4 cm proximal to the esophagogastric junction. There is some partial atelectasis at the left lung base. XR/XR chest 1V [id number] IMPRESSION: Nasogastric tube tip is in the distal esophagus.
[2021-05-20] MEDS: LORazepam 2 mg/mL INJ 1 mL 1 MG IVP (20:04)
--- NOTE | 2021-05-20 20:12 | PC.NURSE ---
While trying to place NG tube in patient, the patient was gagging and began to vomit.
[2021-05-20] MEDS: pantoprazole 40 mg SDV IVP (20:16)
[2021-05-20 20:50] LABS: Reflex Lactate Order REFLEX LACTIC ORDERD
[2021-05-20 21:55] LABS: Lactic Acid level (Lactate) 2.2 mmol/L (0.5-2.2)
[2021-05-20 23:17] LABS: SARS Covid-2 Antigen Negative (Negative)
[2021-05-21] VITALS (7 sets, daily range): BP systolic 93–102; BP diastolic 63–74; PULSE 90–104; RESP 16–19; TEMP 36.6–36.9; O2SAT 90–100; BMI 21.8
[2021-05-21 01:39] LABS: Add Urine Microscopic? YES; Bilirubin Urine 1+ (Negative); Blood Urine Trace (Negative); Glucose Urine UA Norm (Normal); Ketones Urine 2+ (Negative); Leukocyte Esterase Urine Negative (Negative); Nitrate Urine Negative (Negative); Protein Urine Trace (Negative); Urine Appearance Clear (CLEAR); Urine Color Yellow (Yellow); Urobilinogen Urine 1 mg/dL (Negative); pH Urine 5 (5-7)
[2021-05-21 01:40] LABS: Add Urine Culture? No; Amorphous Sediment Urine 2+ /hpf; Bacteria Urine TRACE /hpf; RBC Urine 0-4 /hpf (0-2); Sperm Urine 1+ /hpf; Squamous Epithelial Cell Urine 0-4 /hpf (0-5); WBC Urine 0-4 /hpf (0-5)
--- NOTE | 2021-05-21 02:30 | PM.HP ---
Providers/Chief Complaint Primary Care Provider: Nicole Cervantes MD Chief Complaint: eval History of Present Illness Pleasant 71-year-old gentleman with gastric cancer was referred to ER by his oncologist Dr. Taylor due to 3-day history of inability to tolerate food or drink, with recurrent vomiting, in ER found to have markedly distended stomach with suspicion of gastric outlet obstruction, with thickening and possible lesion in distal gastric wall, liver meta stasis, indeterminate right adrenal mass. He was assessed by the surgeon in ER, NG tube was placed, and transfer was recommended and sought to high-level facility for additional palliative intervention and feeding access. Multiple facilities have been contacted, however, no luck with finding facility with an open bed at this time, without promise of short-term bed availability placed on several waiting lists including [facility], [facility], [facility]. Hospitalization pending transfer arrangements was requested. He is currently feeling somewhat better with decompression with NGT. Mouth feels dry and he requests for ice chips and/or swabs. He has no appetite. He has been having dark loose bowel movements. Had been at usual health otherwise. Review of Systems Const: Reports: change in appetite; Denies: fever(s), chills, body aches or malaise Eyes: Denies: change in vision or eye redness ENMT: Denies: throat pain, oral sores or ear or mastoid pain Card: Denies: chest pain, edema, pre-syncope or dyspnea on exertion Resp: Denies: dyspnea, productive cough, change in phlegm color or hemoptysis GI: Reports: abdominal pain, nausea, vomiting and melena; Denies: diarrhea, constipation or hematochezia : Denies: flank pain, difficulty urinating, urinary frequency or hematuria Musc: Denies: back pain, joint swelling or joint redness Skin/Breast: Denies: rash, sores or new lesions Neuro: Denies: headache(s), numbness in extremities, weakness in extremities, dizziness, confusion or seizure-like activity Endo: Denies: polyuria or polydipsia Von/Lymph: Denies: easy bleeding or purpura All/Imm: Denies: urticaria, throat swelling or tongue swelling Medications/Allergies Home Medications Medication Instructions Recorded Confirmed Last Taken Type sucralfate 1 gram tablet (Carafate) 1 g PO TID #252 tab 05/06/20 05/17/21 05/06/21 Rx acetaminophen 300 mg-codeine 30 mg 1 tab PO TID PRN #21 tab 04/02/21 05/17/21 05/06/21 Rx tablet tizanidine 4 mg capsule 4 mg PO TID PRN #90 cap 04/02/21 05/17/21 05/06/21 Rx ondansetron HCl 4 mg tablet 4 mg PO Q6H PRN #30 tab 05/04/21 05/17/21 05/06/21 Rx (Zofran) pantoprazole 40 mg tablet,delayed 40 mg PO BID 30 Days #60 tab 05/04/21 05/17/21 05/06/21 Rx release (Protonix) atorvastatin 80 mg tablet (Lipitor) 80 mg PO DAILY #90 tab 05/17/21 05/17/21 Unknown Rx clopidogrel 75 mg tablet (Plavix) 75 mg PO DAILY #90 tab 05/17/21 05/17/21 Unknown Rx Allergies Allergy/AdvReac Type Severity Reaction Status Date / Time Penicillins Allergy Mild ALGY-Hives Verified 05/20/21 16:51 PFSH Acute PFSH: Medical History Arteriosclerotic coronary artery disease Blood in stool Gastric cancer Hyperlipidemia Hypertension Surgical History History of colonoscopy with polypectomy within 5 yrs Hx of angioplasty (~05/2010) Family History Father Cancer Mother Dementia Alzheimer's Social History Smoking and tobacco status: former smoker Quit status (tobacco): has quit using tobacco Year quit tobacco: 2010 Former quit date comment: smoked PPD x 20 Second hand smoke exposure: Yes Alcohol intake: current Alcohol intake frequency: 0-2 Drinks per Day Lives independently: Yes Marital status: Current occupational status: employed Current occupation: [employer] History of recent travel: No Current gender identity: Male Vitals/I&O/Wt Last Vital Signs Temp 98.2 F 05/20/21 16:48 Pulse 102 H 05/21/21 01:22 Resp 19 H 03/18/22 01:22 BP 96/72 05/21/21 01:22 Pulse Ox 97 05/21/21 01:22 Weight last 48 hrs Weight 77.111 kg Physical Exam Const: COMMON NORMALS: patient oriented x3 HENMT: COMMON NORMALS: oropharynx normal Neck/C-Spine: COMMON NORMALS: no JVD Resp: COMMON NORMALS: normal respiratory effort and clear to auscultation bilaterally AUSCULTATION: clear to auscultation bilaterally Cardio: COMMON NORMALS: no JVD, regular rhythm, S1 normal heart sound present, S2 normal heart sound present and No murmurs present (Cardio) RHYTHM: regular rhythm HEART SOUNDS: S1 normal heart sound present and S2 normal heart sound present GI: COMMON NORMALS: Soft to palpation INSPECTION: Yes abdominal distension PALPATION: Yes Soft to palpation Extremity: COMMON NORMALS: no joint enlargement and no pedal edema Neuro: COMMON NORMALS: patient oriented x3 and moves all extremities Skin: COMMON NORMALS: no rashes or lesions noted GENERAL SKIN EXAM: no rashes or lesions noted Data : 05/20/21 17:55 05/20/21 18:58 A&P Assessment and plan (1) Gastric outlet obstruction: With inability to tolerate food or drink intake over the last 3 days at least. With recent weight loss with metastatic gastric cancer. Multiple tertiary facilities contacted, waitlisted, no definite timeline on bed availability. While pending transfer for additional palliative intervention, feeding access at tertiary facility, continue NG tube decompression, IV hydration, antiemetics, PPI. Status: Acute (2) Gastric cancer: With noted metastatic disease to liver. Also noted right adrenal mass. Will need additional follow-up. Status: Acute (3) Hematemesis: PPI. Recheck hemoglobin. Status: Acute Plan History of CAD with stenting HTN HLD Home med list to be reconciled. Attestations Medical Necessity Statement*: Place in observation for gastric decompression, IV hydration, PPI and antiemetics in the setting of gastric outlet obstruction, pending bed availability at tertiary facility for additional palliative intervention and feeding access. Coding Level of Care Code Acute Lens Examiner for [facility] Fwd Diagnoses Gastric outlet obstruction K31.1 Gastric cancer C16.9 Hematemesis K92.0
--- NOTE | 2021-05-21 04:05 | PC.NURSE ---
pt arriving from ED via stretcher at 0315. personal belongings with pt; ambulated from stretcher to bed 251-2 with standby assist x1. pt c/o dizziness with standing and ambulating. educated pt on safety/fall precautions to including calling for assisted when pt wants to get OOB r/t dizziness. Oriented to room, bed, POC. pt denies questions or concerns at this time.
[2021-05-21] MEDS: lactated ringers 1,000 ML 100 ML IV ×2 (04:15→11:14)
--- NOTE | 2021-05-21 06:42 | PC.NURSE ---
NG output minimal since arrival to unit; suction tubing only partially filled with grainy yellow/brown fluid, no fluid currently in suction canister; remains on LIWS.
--- NOTE | 2021-05-21 08:08 | PC.NURSE ---
ALEKS Mendez from [facility] called at this time to inquire on patient.
--- NOTE | 2021-05-21 10:46 | PC.CHAP ---
Pastoral Care Encounter/Spiritual Assessment Type of Contact [] Declined wet primer powder blender visit [] Patient/Family/Request visit [] Outpatient visit [] Follow-up visit [] Physician referral [] Code/Alert [x] Routine visit [] Staff referral [] Actively dying [x] Patient sleeping [] Family support [] [] Out of room [] Palliative care [] [] Receiving care in room [] Pre-surgical visit [] Trauma [] Long length of stay [] ICU visit [] Other: Relational/Emotional Strength [] Patient feels connected with others/family/visitors/staff [] Distress [] Loneliness/isolation [] Abandonment Spirituality of Patient [] Person of Farida [] Attends Hindu of their [place] [] Believes in Prayer [] Reads Bible or Caodaism materials [] There are Spiritual issues to be addressed Drying Machine Operator Interventions [] Prayer [] Active listening [] Non-anxious presence [] Spiritual/emotional support [] Crisis/trauma care [] Spiritual counseling [] Bereavement support [] Provided bereavement packet [] Provided Bible/devotional materials [] Provided toy/stuffed animal, coloring book to patient or family member [] Provided Communion [] Anointing/[place] [] Salvation [] Completed spiritual assessment [] Other: Impact on Illness or Injury [] Angry [] Fearful [] Anxious [] Often cries [] Exhaustion [] Unable to work [] Unable to attend religion [] Unable to walk/stand [] Unable to read [] Unable to drive [] Unable to eat/drink [] Unable to sleep [] Unable to be with family [] Patient intubated [] Other: Summary Time spent with patient
[2021-05-21] MEDS: ondansetron 2 mg/ML SDV 2 mL 4 MG IVP (11:13)
--- NOTE | 2021-05-21 11:29 | PM.PN ---
Subjective Subjective: Pt is fine as long as you don't toss me around . He is feeling nauseated. Vitals/I&O/Wt Last Vital Signs Temp 98.3 F 05/21/21 07:26 Pulse 90 05/21/21 07:26 Resp 16 05/21/21 07:26 BP 102/68 05/21/21 07:26 Pulse Ox 92 05/21/21 07:26 05/20/21 05/21/21 05/21/21 22:59 06:59 14:59 Intake Total 1999 698.333 / 698.333 Output Total 0 / 0 Balance 1999 698.333 / 698.333 Weight last 48 hrs Weight 75.16 kg Weight 77.111 kg Physical Exam Narrative: Thin white male who appears slightly older than his stated age of 71. He is in no acute distress at time of exam heart is regular normal S1-S2 without murmurs clicks gallops or rubs. Lungs clear to auscultation without wheezes rales or rhonchi prolonged expiration and overall diminished. Abdomen soft significant tenderness in the epigastric area NG tube in place with coffee ground or black appearing output. Extremities no clubbing cyanosis or edema Data : 05/20/21 17:55 05/20/21 18:58 A&P Assessment and plan (1) Gastric cancer: Status: Acute (2) Gastric outlet obstruction: Status: Acute (3) Dehydration: Status: Acute (4) Hematochezia: Status: Acute (5) Arteriosclerotic coronary artery disease: Status: Acute (6) Hypertension: Status: Acute Plan Patient was diagnosed with gastric cancer via EGD in 02/2020. He was lost to follow-up. Pt was admitted with abdominal pain Samuel hematochezia and syncope. CAT scan done with contrast shows: #1 emphysema at lung bases with mild fibrotic changes. #2 3 ring-enhancing lesions in the right lobe of the liver worrisome for metastasis. #4 A possible fourth met metastatic lesion. It appears this patient currently has metastatic gastric cancer with gastric outlet obstruction. Consultation with local surgeon and the local surgeon with the oncologist results in the suggestion of transfer to a tertiary care center. The suggestion is for at minimum J-tube placement for feeding followed by recommended palliative chemoradiation as per the oncology team at subsequent hospital. Long conversation with patient daughter Krystal that the patient lives with, daughter Jena out of state and son Ricky in [place] results in agreement that the patient would like to pursue palliative chemoradiation treatments if recommended. Ideally the family would prefer the patient to be in [place] which is close to the son. The previous physician has the patient on a waiting list at [facility]. I have called [facility] and awaiting callback if patient will be placed on list. I have also called [facility] in [place] and they would only call back if of bed is available and then I could speak to the doctor. Lastly I decided to call [facility] in [place]. They are asking for the facesheet and if the CAT scan images could be pushed to [facility] and then followed up. At this point [facility] said is a possibility that they could accept the patient this afternoon. If that is the case I would prefer transfer to [facility]. If I am unable to find a bed I am might ask surgery to place the J-tube for feeding source or will need TPN. Also we discussed what the patient would want in a catastrophic event as far as cardio pulmonary resuscitation. He states he would not want to be on machines and if I am I am . Thus patient will be a DO NOT RESUSCITATE. Attestations Medical Necessity Statement*: Patient with newly diagnosed metastatic gastric cancer without a feeding source. Patient will need to be transferred to a higher level of care. Coding Level of Care Code Acute Audit Machine Operator for g Fwd Diagnoses Gastric cancer C16.9 Gastric outlet obstruction K31.1 Dehydration E86.0 Hematochezia K92.1 Arteriosclerotic coronary artery disease I25.10 Hypertension I10
[2021-05-21 13:58] LABS: Glucose Point of Care 107 mg/dL (70-110)
[2021-05-21] MEDS: ondansetron 2 mg/ML SDV 2 mL 8 MG IVP ×2 (17:06→23:54)
[2021-05-21] MEDS: morphine 10 mg/0.5 mL oral liq UD 5 MG SUBLINGUAL (19:51)
--- NOTE | 2021-05-21 20:02 | PC.NURSE ---
THIS NURSE ALONG WITH THE WAREHOUSE DELIVERY MANAGER, Rachid NGUYEN, WAS ASSISTING PT TO THE TOILET. PT DID VERY WELL AMBULATING TO THE TOILET. ONCE PT GOT TO THE TOILET HE APPEARED TO LOOK VERY PALE. THIS NURSE MENTIONED TO THE PT THAT HE DIDNT LOOK VERY GOOD AND ASKED IF HE FELT OK. HE SAID YES. THIS NURSE ASKED THE PT HIS NAME BECAUSE HE APPEARED IF HE WAS GOING TO PASS OUT. HE REPLIED BUT IT WAS A MUMBLED RESPONSE. THE PT THEN LEANED FORWARD AND WAS NOT ABLE TO SIT BACK UP. THIS NURSE ASSISTED THE PT TO THE GROUND. PT NEVER HIT HIS HEAD NOR ANY OTHER BODY PART ON ANYTHING IN THE BATHROOM. PT NEVER FULLY LOST CONSCIOUSNESS. HE DID HOWEVER BECOME UNABLE TO SPEAK OR STAND BACK UP FOR THE TIME BEING. THE PT APPEARED TO HAVE SOME DIFFICULTY BREATHING AND WAS NOT RESPONDING VERBALLY NOR TO PAIN (VIA STERNAL RUB) WHILE ON THE FLOOR. THIS NURSE HAD THE WAREHOUSE DELIVERY MANAGER GO GET HELP. PTS NURSE AND AID RESPONDED QUICKLY. WE WERE STILL UNABLE TO GET THE PT TO STAND OR EVEN REALLY RESPOND. WE WERENT ABLE TO OBTAIN VITALS. SO WE SAFELY ASSISTED THE PT BACK INTO THE BED. A RAPID RESPONSE WAS CALLED. VITALS WERE OBTAINED, PTS BLOOD PRESSURE WAS IN THE TOILET. DR. LEE RESPONDED IMMEDIATELY. ORDERS OBTAINED AND PERFORMED BY STAFF. PTS FEET WERE RAISED AND HE STARTED RESPONDING RATHER QUICKLY AFTER GETTING HIM BACK TO BED. AFTER THIS PT APPEARS TO BE A/O X3. THE FAMILY, PT AND DR HAD ALL BEEN DISCUSSING PLAN OF CARE FOR THIS PT. AFTER EVENT PLAN OF CARE DISCUSSED IN FURTHER DETAIL WITH THE FAMILY AND PLANS TO MOVE PT TO HOSPICE ARE BEING TAKEN. WILL CONTINUE TO MONITOR PT.
[2021-05-22] VITALS (9 sets, daily range): BP systolic 92–117; BP diastolic 66–78; PULSE 68–116; RESP 16–19; TEMP 36.4–37.1; O2SAT 85–92
[2021-05-22] MEDS: morphine 4 mg/mL SDV 1 mL IVP ×2 (00:11→13:07)
[2021-05-22] MEDS: pantoprazole 40 mg SDV IVP ×2 (10:22→19:55)
[2021-05-22] MEDS: ondansetron 2 mg/ML SDV 2 mL 8 MG IVP ×2 (10:23→15:51)
--- NOTE | 2021-05-22 15:23 | PM.PN ---
Subjective Subjective: Patient is awake and fully responsive today. He denies any pain. He is however very nauseous. Whenever he has ice chips or water he vomits Daughter Krystal is at the bedside as well as a close family friend and his son. Medications: Reviewed: Yes Vitals/I&O/Wt Last Vital Signs Temp 98 F 05/22/21 12:00 Pulse 115 H 05/22/21 12:00 Resp 16 05/22/21 13:07 BP 117/78 05/22/21 12:00 Pulse Ox 90 05/22/21 13:07 05/22/21 05/22/21 05/22/21 06:59 14:59 22:59 Intake Total 30 / 1560.000 Output Total 0 / 0 Balance 30 / 1560.000 Weight last 48 hrs Weight 76.975 kg Weight 75.16 kg Weight 77.111 kg Physical Exam Narrative: Thin white male who appears slightly older than his stated age of 71. He is in no acute distress at time of exam Heart: regular normal S1-S2 without murmurs clicks gallops or rubs. Lungs: clear to auscultation without wheezes rales or rhonchi prolonged expiration and overall diminished. Abdomen soft significant tenderness in the epigastric area NG tube in place with coffee ground or black appearing output. Extremities no clubbing cyanosis or edema Data : 05/20/21 17:55 05/20/21 18:58 A&P Assessment and plan (1) Gastric cancer: Status: Acute (2) Gastric outlet obstruction: Status: Acute (3) Dehydration: Status: Acute (4) Hematochezia: Status: Acute (5) Arteriosclerotic coronary artery disease: Status: Acute (6) Hypertension: Status: Acute Plan Pt plan of care has been changed to comfort measures only, since this cancer is so aggressive and any hydration or feeding will likely create more harm than benefit by inducing fluid overload. He has signed on to hospice and he is inpatient hospice due to uncontrolled nausea and continued vomitting with mere ice chip/sips of water. Add reglan and use ativan for nausea. this strategy reviewed with RN. Pt may require all 3 medications to control symptoms and we can try other alternatives if reglan and ativan do not alleviate symptoms. Pt asking about home heart medications and I explained that we would not prescribe plavix since he is already bleeding and that could make him worse plus the fact that he can not absorb/digest any pills due to the obstruction. Pt and family relate understanding and are appreciative of care. Once symptoms controlled, pt will be discharged home with daughter and a new hospice agency will be consulted due to living in [place]. Attestations Medical Necessity Statement*: Inpatient hospice surgery for patient's end-of-life condition and uncontrolled nausea and vomiting. Coding Level of Care Code Acute Target Network Analyst for g Fwd Diagnoses Gastric cancer C16.9 Gastric outlet obstruction K31.1 Dehydration E86.0 Hematochezia K92.1 Arteriosclerotic coronary artery disease I25.10 Hypertension I10
[2021-05-22] MEDS: LORazepam 2 mg/mL INJ 1 mL 0.5 MG SUBLINGUAL (15:51)
[2021-05-23] VITALS (7 sets, daily range): BP systolic 95–107; BP diastolic 61–73; PULSE 100–111; RESP 16–20; TEMP 32.7–37.1; O2SAT 86–98
[2021-05-23] MEDS: ondansetron 2 mg/ML SDV 2 mL 8 MG IVP ×3 (00:33→16:24)
[2021-05-23] MEDS: pantoprazole 40 mg SDV IVP ×2 (08:25→20:38)
[2021-05-23] MEDS: morphine 4 mg/mL SDV 1 mL IVP (11:28)
--- NOTE | 2021-05-23 13:07 | P.PN_ITS ---
Subjective Subjective: Doing better today. Wants to try sips of water again. Tolerating ice chips. Denied CP, SOB, Family waiting on home equipment from Hospice Vitals/I&O/Wt Last Vital Signs Temp 98.0 F 05/23/21 11:50 Pulse 100 05/23/21 11:50 Resp 16 05/23/21 11:50 BP 102/68 05/23/21 11:50 Pulse Ox 91 05/23/21 11:50 05/22/21 05/23/21 05/23/21 22:59 06:59 14:59 Intake Total 180 / 180 Output Total 200 / 200 Balance - Weight last 48 hrs Weight 76.975 kg Physical Exam Narrative: NAD CVS: S1S2, RRR, Mur (-) Resp: CTA Abd Soft, epigat mild tender Edema (-)VOLUNTEER COORDINATOR A&Ox3 Data : 05/20/21 17:55 05/20/21 18:58 A&P Assessment and plan (1) Gastric cancer: Pat opting to have hospice care. Status: Acute (2) Gastric outlet obstruction: Hospice care w/ comfort measure Status: Acute (3) Dehydration: Status: Acute (4) Leukocytosis: Status: Acute (5) Hematemesis: Status: Acute Plan Awaiting on home equipment and then d/c home w/ hospice Attestations Medical Necessity Statement*: Pt has Gastic Ca w/ gastric outlet obstruction. Will continue hospitalization until transfer to hospice care at home Time Spent in Patient Care: 35 min Coding Level of Care Code Acute Assistant Professor Of Physics for Chg Fwd Diagnoses Gastric cancer C16.9 Gastric outlet obstruction K31.1 Dehydration E86.0 Leukocytosis D72.829 Hematemesis K92.0
[2021-05-24] VITALS: BP 93/65; PULSE 104; RESP 18; TEMP 36.6; O2SAT 91
[2021-05-24] MEDS: ondansetron 2 mg/ML SDV 2 mL 8 MG IVP ×2 (00:37→08:20)
[2021-05-24 04:00] VITALS: BP 93/69; PULSE 112; RESP 20; TEMP 37; O2SAT 91
[2021-05-24 07:01] VITALS: BP 91/63; PULSE 103; RESP 15; TEMP 36.7; O2SAT 92
[2021-05-24 07:36] VITALS: PULSE 105; RESP 18; O2SAT 93
[2021-05-24] MEDS: pantoprazole 40 mg SDV IVP (08:20)
[2021-05-24] MEDS: morphine 4 mg/mL SDV 1 mL IVP (08:23)
[2021-05-24] MEDS: metoclopramide 5 mg/mL SDV 2 mL 10 MG IVP (08:54)
--- NOTE | 2021-05-24 09:59 | PM.DCS ---
Discharge Providers Date of Admission: 05/21/21 15:48 Date of Discharge: May 24, 2021 Attending Provider at Admission: Blair Purdy Attending Provider at Discharge: Lamont Turner MD Primary Care Provider: Nicole Cervantes MD Diagnoses at Discharge Discharge Diagnosis (1) Gastric cancer: Status: Acute (2) Gastric outlet obstruction: Status: Acute (3) Dehydration: Status: Acute (4) Leukocytosis: Status: Acute (5) Hematemesis: Status: Acute Reason for Visit Reason for Visit: eval Hospital Course Hospital Course Hospital admission note by Dr. Purdy Pleasant 71-year-old gentleman with gastric cancer was referred to ER by his oncologist Dr. Taylor due to 3-day history of inability to tolerate food or drink, with recurrent vomiting, in ER found to have markedly distended stomach with suspicion of gastric outlet obstruction, with thickening and possible lesion in distal gastric wall, liver meta stasis, indeterminate right adrenal mass. He was assessed by the surgeon in ER, NG tube was placed, and transfer was recommended and sought to high-level facility for additional palliative intervention and feeding access.? Multiple facilities have been contacted, however, no luck with finding facility with an open bed at this time, without promise of short-term bed availability placed on several waiting lists including [facility], [facility], [facility].? Hospitalization pending transfer arrangements was requested. He is currently feeling somewhat better with decompression with NGT.? Mouth feels dry and he requests for ice chips and/or swabs.? He has no appetite.? He has been having dark loose bowel movements.? Had been at usual health otherwise. Hospital course During hospitalization he was seen by Dr. Lopez who is also our palliative oracle ascp consultant, I am seeing this patient on Monday, patient has been started on hospice care, he will go home to his daughter in [place] with hospice services. He does not want any tube feeds, PEG tube, J-tube, TPN or NG tube. He is tolerating only 1 to 2 mL of liquid via mouth otherwise he regurgitates everything he eats. Family is aware. Attempts were made to transfer patient however, transferring physician was notified that patient is not a surgical candidate and he would need palliative chemo/RT. However Dr. Tijerina from [facility] recommended against palliative chemo or radiotherapy and recommended only hospice care. Physical Exam Narrative: Patient was dehydrated Tolerating ice chips Nonfocal neuro exam Abdomen is not tender Awake and alert Brother is at the bedside Currently on 3 L nasal cannula Discharge Data Studies Completed and Pending Completed Studies During Hospitalization Category Date Time Status CT abdomen pelvis w con* [id number] Urgent Cat Scan 05/20/21 18:01 Completed XR chest 1V [id number] Stat Exams 05/20/21 19:52 Completed XR chest 1V portable [id number] Urgent Exams 05/20/21 17:36 Completed Radiology Impressions Abdomen/Pelvis CT 05/20/21 18:01 IMPRESSION: 1. Markedly distended stomach with suspicion of gastric outlet obstruction. 2. Liver metastasis. 3. Thickening and possible lesion distal gastric wall. 4. Indeterminate right adrenal mass, follow-up suggested. 5. Mild gastrohepatic adenopathy COMMENTS: 1. THIS REPORT CONTAINS FINDINGS THAT MAY BE CRITICAL TO PATIENT CARE. The findings were verbally communicated via telephone conference with Dorothy Dacosta at 7:03 PM CDT on 05/20/2021. The findings were acknowledged and understood. 2. Consistent with the [employer]'s Incidental Findings Committee white paper (J Am Arsen Radiol 2018): Any incidental renal lesion less than 1 cm or classified as too small to characterize, or any incidental cystic renal lesion characterized as simple-appearing, is likely benign. No follow-up imaging is recommended for these lesions per consensus recommendations based on imaging criteria. Chest X-Ray 05/20/21 19:52 IMPRESSION: Nasogastric tube tip is in the distal esophagus. Laboratory Results WBC 15.0 10^3/uL (4.0-10.0) H 05/20/21 17:55 RBC 4.62 10^6/uL (4.1-5.3) 05/20/21 17:55 Hgb 11.4 g/dL (11.7-16.6) L 05/20/21 17:55 Hct 37.9 % (42.0-52.0) L 05/20/21 17:55 MCV 82.0 fl (80-94) 05/20/21 17:55 MCH 24.7 pg (28.0-34.0) L 05/20/21 17:55 MCHC 30.1 g/dL (30.0-36.0) 05/20/21 17:55 RDW 15.6 % (12.1-15.1) H 05/20/21 17:55 Plt Count 468 10^3/cmm (130-400) H 05/20/21 17:55 MPV 9.2 fL (7.4-10.4) 05/20/21 17:55 Neut % (Auto) 84.8 % 05/20/21 17:55 Lymph % (Auto) 6.3 % 05/20/21 17:55 [place] % (Auto) 7.4 % 05/20/21 17:55 Eos % (Auto) 0.3 % 05/20/21 17:55 Baso % (Auto) 0.7 % 05/20/21 17:55 Neut # (Auto) 12.70 10^3/uL (1.8-7.7) H 05/20/21 17:55 Lymph # (Auto) 0.9 10^3/uL (0.8-4.8) 05/20/21 17:55 [place] # (Auto) 1.1 10^3/uL (0.2-0.9) H 05/20/21 17:55 Eos # (Auto) 0.0 10^3/uL (0.0-0.8) 05/20/21 17:55 Baso # (Auto) 0.1 10^3/uL (0.0-0.1) 05/20/21 17:55 Nucleated RBC % (auto) 0 % 05/20/21 17:55 Nucleated RBCs # 0.0 /100WBC 05/20/21 17:55 Sodium 136 mmol/L (136-145) 05/20/21 18:58 Potassium 4.5 mmol/L (3.5-5.1) 05/20/21 18:58 Chloride 100 mmol/L (98-107) 05/20/21 18:58 Carbon Dioxide 14 mmol/L (22-29) L 05/20/21 18:58 Anion Gap 26.5 (5-19) H 05/20/21 18:58 BUN 21 mg/dL (8-23) 05/20/21 18:58 Creatinine 0.7 mg/dL (0.7-1.2) 05/20/21 18:58 GFR Calculation Not Reportable 05/20/21 18:58 Glucose 103 mg/dL (65-115) 05/20/21 18:58 POC Glucose 107 mg/dL (70-110) 05/21/21 13:41 Calculated Osmolality 285 mOsm/kg (285-295) 05/20/21 18:58 Lactic Acid 2.9 mmol/L (0.5-2.2) H 05/20/21 18:58 Lactic Acid (Sepsis) 2.2 mmol/L (0.5-2.2) 05/20/21 21:33 Calcium 8.5 mg/dL (8.5-10.5) 05/20/21 18:58 Total Bilirubin 0.4 mg/dL (0.15-1.2) 05/20/21 18:58 AST 45 U/L (0-40) H 05/20/21 18:58 ALT 19 U/L (0-41) 05/20/21 18:58 Alkaline Phosphatase 80 IU/L (40-130) 05/20/21 18:58 Total Protein 6.7 g/dL (6.6-8.7) 05/20/21 18:58 Albumin 3.5 g/dL (3.5-5.2) 05/20/21 18:58 Globulin 3.2 g/dL (1.3-4.6) 05/20/21 18:58 Lipase 47 U/L (13-60) 05/20/21 18:58 Urine Color Yellow (Yellow) 05/21/21 01:15 Urine Appearance Clear (CLEAR) 05/21/21 01:15 Urine pH 5 (5-7) 05/21/21 01:15 Ur Specific [place] 1.010 (1.005-1.030) 05/21/21 01:15 Urine Protein Trace (Negative) 05/21/21 01:15 Urine Glucose (UA) Norm (Normal) 05/21/21 01:15 Urine Ketones 2+ (Negative) H 05/21/21 01:15 Urine Blood Trace (Negative) H 05/21/21 01:15 Urine Nitrate Negative (Negative) 05/21/21 01:15 Urine Bilirubin 1+ (Negative) H 05/21/21 01:15 Urine Urobilinogen 1 mg/dL (Negative) H 05/21/21 01:15 Ur Leukocyte Esterase Negative (Negative) 05/21/21 01:15 Urine RBC 0-4 /hpf (0-2) H 05/21/21 01:15 Urine WBC 0-4 /hpf (0-5) H 05/21/21 01:15 Ur Squamous Epith Cells 0-4 /hpf (0-5) H 05/21/21 01:15 Amorphous Sediment 2+ /hpf 05/21/21 01:15 Urine Bacteria Trace /hpf (NONE) 05/21/21 01:15 Urine Sperm 1+ /hpf 05/21/21 01:15 SARS-CoV-2 Ag (Rapid) Negative (Negative) 05/20/21 22:42 Vitals Last Vital Signs Temp 98.1 F 05/24/21 07:01 Pulse 105 H 05/24/21 07:36 Resp 18 05/24/21 07:36 BP 91/63 05/24/21 07:01 Pulse Ox 93 05/24/21 07:36 Discharge Plan Discharge Patient Disposition: Hospice - Home Condition: Stable Prescriptions: Discontinued Carafate 1 gram tablet 1 g PO TID Qty: 252 3RF acetaminophen-codeine 300-30 mg tablet 1 tab PO TID PRN (Reason: pain) Qty: 21 0RF ondansetron HCl [Zofran] 4 mg tablet 4 mg PO Q6H PRN (Reason: nausea and vomiting) Qty: 30 0RF pantoprazole [Protonix] 40 mg tablet,delayed release (DR/EC) 40 mg PO BID 30 Days Qty: 60 0RF atorvastatin [Lipitor] 80 mg tablet 80 mg PO DAILY Qty: 90 3RF clopidogrel [Plavix] 75 mg tablet 75 mg PO DAILY Qty: 90 3RF Hold Instructions: Resume on 02/22/20. Discharge Orders: Discharge Order (Routine); Ordered 05/24/21 Ordered By: Lamont Turner Referrals: [facility] [Other] ([facility] will admit you to their services. If you have any questions or concerns please call them at [phone].) Nicole Cervantes MD [Primary Care Provider] - 06/01/21 10:20 am Discharge Diet: Clear Liquid Patient Instructions: Dehydration (DC), Hematemesis (ED) Discharge Attestations Time Spent in Discharge Care*: less than 30 min Quality Metrics Clinical Quality Measures [ No reported AMI, CVA or VTE this stay] Coding Level of Care Code Acute Chg FW DC note Diagnoses Gastric cancer C16.9 Gastric outlet obstruction K31.1 Dehydration E86.0 Leukocytosis D72.829 Hematemesis K92.0
--- NOTE | 2021-05-24 11:05 | PC.SOCIAL ---
IMM Update Pg. 2 of IMM updated and reviewed with patient, who verbalized understanding. Initialed, dated, and timed, and placed in chart. Copy provided to patient.
[2021-05-24 12:00] VITALS: BP 93/65; PULSE 100; RESP 18; TEMP 36.6; O2SAT 92
[2021-05-24 13:10] VITALS: BP 93/65; PULSE 100; RESP 18; TEMP 36.6; O2SAT 92
== END 2021-05-24 13:11 | disposition hospice, home (50) | DRG 375 ==
LOC: ER 05-21 02:04 → MEDSURG 05-21 02:41
PROVIDERS: Internal Medicine; Admitting Provider Internal Medicine; Emergency Provider Physician Assistant; PCP Family Medicine; Visit Provider Internal Medicine
DX: C16.9 Malignant neoplasm of stomach, unspecified (principal); C78.7 Secondary malignant neoplasm of liver and intrahepatic bile duct; C78.6 Secondary malignant neoplasm of retroperitoneum and peritoneum; K31.1 Adult hypertrophic pyloric stenosis; K92.0 Hematemesis; I25.10 Atherosclerotic heart disease of native coronary artery without angina pectoris; Z98.61 Coronary angioplasty status; I10 Essential (primary) hypertension; E78.5 Hyperlipidemia, unspecified; Z87.891 Personal history of nicotine dependence; E86.0 Dehydration; J43.2 Centrilobular emphysema; E27.9 Disorder of adrenal gland, unspecified; R55 Syncope and collapse; G89.3 Neoplasm related pain (acute) (chronic); Z66 Do not resuscitate
CPT/HCPCS: 36415; 36416; 71045; 74018; 74177; 80053; 81001; 82962; 83605; 83690; 85025; 87426; 96361; 96374; 96375; 99205; 99285; C9113; G0378; J2060; J2270; J2405; J2765; J7030; Q9967